=== PATIENT | female | born 1985 | race Caucasian/White ===

== ENCOUNTER 2017-07-09 15:13 | Emergency (ER) | payer OTHER ==
[~2017-07-09 15:13] MED LIST: ESCI20TA PO; OXCA300 PO
[2017-07-09 15:35] VITALS: BP 160/88; PULSE 106; RESP 20; TEMP 99.2; O2SAT 98
[2017-07-09] MEDS ORDERED: ZOLO100T PO (15:35)
[2017-07-09] MEDS ORDERED: SUBO8MIS SL (15:35)
--- NOTE | 2017-07-09 16:29 | RADRPT ---
EXAM DATE/TIME: 07/09/2017 15:58 [place] COMPARISON: No previous studies available for comparison. INDICATIONS : Pain in right wrist after landing on it. MEDICAL HISTORY : None. SURGICAL HISTORY : None. ENCOUNTER: Initial ACUITY: 1 day PAIN SCORE: 4/10 LOCATION: Right wrist FINDINGS: Three view examination of the right wrist demonstrates no soft tissue swelling, dislocation, or fract ure. The carpal bones are in normal alignment. The joint spaces are maintained. Bony mineralizatio n is normal. CONCLUSION: No acute disease. Rubio Cavazos MD on July 09, 2017 at 16:27 Board Certified Radiologist. This report was verified electronically.
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
== END 2017-07-09 16:52 ==
LOC: NEDAMB 15:13
DX: M25.531 Pain in right wrist (principal); G89.29 Other chronic pain; M54.9 Dorsalgia, unspecified; G56.00 Carpal tunnel syndrome, unspecified upper limb; F31.9 Bipolar disorder, unspecified; F17.200 Nicotine dependence, unspecified, uncomplicated; F14.90 Cocaine use, unspecified, uncomplicated
CPT/HCPCS: 73110; 99283